=== PATIENT | female | born 1980 | race American Indian/Alaskan Native ===

== ENCOUNTER 2019-09-02 20:15 | Emergency (ER) | payer MEDICAID ==
[2019-09-02] MEDS ORDERED: ATROVENT IH ONE (20:34)
[2019-09-02] MEDS ORDERED: PROVENTIL IH ONE (20:34)
--- NOTE | 2019-09-02 20:34 | Event Note ---
ED Screening Note ED Screening Note: presents SOB/wheezing a couple days hx of asthma uses albuterol inhaler subjective fever cough PMHx DM no allergies to meds PSHx hysterectomy This initial assessment/diagnostic orders/clinical plan/treatment(s) is/are subject to change based on patients health status, clinical progression and re-assessment by fellow clinical providers in the ED. Further treatment and workup at subsequent clinical providers discretion. Patient/guardian urged not to elope from the ED as their condition may be serious if not clinically assessed and managed. Initial orders include: CXR, neb tx
--- NOTE | 2019-09-02 20:56 | Emergency Department Report ---
ED Shortness of Breath HPI - General Chief Complaint: Dyspnea/Respdistress Stated Complaint: SOB/BODY PAIN Time Seen by Provider: 09/02/19 20:32 Source: patient Mode of arrival: Ambulatory Limitations: No Limitations - History of Present Illness Initial Comments: Patient is a 38-year-old female with a history of asthma that presents emergency room with complaints of wheezing, cough, shortness of breath. He states her symptoms started 2 days ago. Patient also complaining of body aches. Patient denies fever. She states she recently moved to [place] and ran out of her asthma medications. Patient states she only takes albuterol. Patient states h er symptoms are better with rest and worse with exertion. Patient denies chest pain. Patient denies nausea vomiting. Patient denies abdominal pain. Patient denies syncope. Patient denies dizziness. MD Complaint: shortness of breath, cough -: Sudden Severity: moderate Consistency: constant Improves With: rest Worsens With: exertion Known History Of: asthma Context: recent URI, medication noncompliance Associated Symptoms: cough Treatments Prior to Arrival: none - Related Data Home Oxygen Therapy: No Previous Rx's Medication Instructions Recorded Last Taken Type ALBUTEROL Inhaler (OR & NICU) 2 puff IH Q4HR PRN #1 inhalation 09/02/19 Unknown Rx [ProAir HFA Inhaler] ALBUTEROL NEB's [Proventil 0.083% 2.5 mg IH TID PRN #1 box 09/02/19 Unknown Rx NEBS] Doxycycline Hyclate [Doxycycline 100 mg PO Q12HR 10 Days #20 tab 09/02/19 Unknown Rx Hyclate TAB] methylPREDNISolone [Medrol 4MG 4 mg PO DAILY 6 Days #1 tab.ds.pk 09/02/19 Unknown Rx DOSEPAK (21 tabs)] Allergies Allergy/AdvReac Type Severity Reaction Status Date / Time No Known Allergies Allergy Unverified 09/02/19 20:35 ED Review of Systems ROS: Stated complaint: SOB/BODY PAIN Other details as noted in HPI Constitutional: denies: fever Eyes: denies: eye pain, eye discharge, vision change ENT: denies: ear pain, throat pain Respiratory: cough, shortness of breath. denies: wheezing Cardiovascular: denies: chest pain, palpitations Endocrine: no symptoms reported Gastrointestinal: denies: abdominal pain, nausea, diarrhea Genitourinary: denies: urgency, dysuria, discharge Musculoskeletal: denies: back pain, joint swelling, arthralgia Skin: denies: rash, lesions Neurological: denies: headache, weakness, paresthesias Psychiatric: denies: anxiety, depression Hematological/Lymphatic: denies: easy bleeding, easy bruising ED Past Medical Hx - Past Medical History Previous Medical History?: Yes Hx Diabetes: Yes Hx Asthma: Yes Additional medical history: Pneumonia, Obesity - Surgical History Past Surgical History?: Yes Additional Surgical History: Hysterectomy - Family History Family history: no significant - Social History Smoking Status: Never Smoker Substance Use Type: None - Medications Home Medications: Home Medications Medication Instructions Recorded Confirmed Last Taken Type ALBUTEROL Inhaler (OR & NICU) 2 puff IH Q4HR PRN #1 inhalation 09/02/19 Unknown Rx [ProAir HFA Inhaler] ALBUTEROL NEB's [Proventil 0.083% 2.5 mg IH TID PRN #1 box 09/02/19 Unknown Rx NEBS] Doxycycline Hyclate [Doxycycline 100 mg PO Q12HR 10 Days #20 tab 09/02/19 Unknown Rx Hyclate TAB] methylPREDNISolone [Medrol 4MG 4 mg PO DAILY 6 Days #1 tab.ds.pk 09/02/19 Unknown Rx DOSEPAK (21 tabs)] ED Physical Exam - General Limitations: No Limitations General appearance: alert, in no apparent distress - Head Head exam: Present: atraumatic, normocephalic - Eye Eye exam: Present: normal appearance - ENT ENT exam: Present: mucous membranes moist - Neck Neck exam: Present: normal inspection - Respiratory Respiratory exam: Present: wheezes. Absent: respiratory distress - Cardiovascular Cardiovascular Exam: Present: regular rate, normal rhythm. Absent: systolic murmur, diastolic murmur, rubs, gallop - GI/Abdominal GI/Abdominal exam: Present: soft, normal bowel sounds - Extremities Exam Extremities exam: Present: normal inspection - Back Exam Back exam: Present: normal inspection - Neurological Exam Neurological exam: Present: alert, oriented X3 - Psychiatric Psychiatric exam: Present: normal affect, normal mood - Skin Skin exam: Present: warm, dry, intact, normal color. Absent: rash ED Course Vital Signs 09/02/19 09/02/19 09/02/19 20:22 21:23 23:53 Temperature 99.2 F Pulse Rate 99 H Pulse Rate [ 64 Posterior Bases ] Respiratory 20 Rate Respiratory 18 Rate [Posterior Bases] Blood Pressure 176/97 Blood Pressure 166/88 [Left] O2 Sat by Pulse 94 Oximetry - Reevaluation(s) Reevaluation #1: Patient's lungs improved. Patient's lung sounds are now clear. Patient responded well to treatment. I discussed all results with patient. I discussed plan of care with patient. Patient agrees with plan of care. Patient is stable for discharge. Patient will be discharged home. Patient given discharge instructions. Patient voiced understanding of discharge instructions. 09/02/19 22:54 ED Medical Decision Making - Lab Data Result diagrams: 09/02/19 21:00 09/02/19 21:00 - Radiology Data Radiology results: report reviewed, image reviewed CHEST 2 VIEWS INDICATION / CLINICAL INFORMATION: SOB, wheezing, cough, subjective fever. COMPARISON: None available. FINDINGS: SUPPORT DEVICES: None. HEART / MEDIASTINUM: No significant abnormality. LUNGS / PLEURA: There is mild bronchial wall thickening. Mild subsegmental atelectasis in the right lung base. No focal pulmonary consolidation. No pleural effusion. No pneumothorax. ADDITIONAL FINDINGS: No significant additional findings. IMPRESSION: 1. Mild bronchial wall thickening which may be seen in the setting of reactive airway disease or viral upper respiratory infection. No focal pulmonary consolidation. - Medical Decision Making Patient is a 38-year-old female that presents emergency room with complaints of shortness of breath and wheezing. Patient's findings extensively with asthma and bronchitis. Patient's chest x-ray negative for pneumonia but shows findings consistent with bronchitis. Patient's labs unremarkable except for hyperglyce blayne. Patient's history of diabetes. Patient instructed to continue diabetes medications and follow-up with her primary care as soon as possible for diabetes management.. Patient responded well to treatment. Patient given antibiotics, steroids, inhaler - Differential Diagnosis asthma. Bronchitis. Critical care attestation.: If time is entered above; I have spent that time in minutes in the direct care of this critically ill patient, excluding procedure time. ED Disposition Clinical Impression: SOB (shortness of breath), Cough, Bronchitis Asthma Qualifiers: Asthma severity: unspecified severity Asthma persistence: unspecified Asthma complication type: with acute exacerbation Qualified Code(s): J45.901 - Unspecified asthma with (acute) exacerbation Disposition: - TO HOME OR SELFCARE Is pt being admited?: No Does the pt Need Aspirin: No Condition: Stable Instructions: Asthma (ED), Acute Bronchitis (ED), Reactive Airways Disease (ED) Additional Instructions: Patient to follow-up with primary care in 2-3 days. Patient to follow-up with residential door installer in 2-3 days. Patient to return to ER if condition worsens. Patient to rest. Patient to increase water. Patient to take meds as directed. Patient's take Tylenol or ibuprofen when necessary for pain. Prescriptions: Doxycycline Hyclate [Doxycycline Hyclate TAB] 100 mg PO Q12HR 10 Days #20 tab methylPREDNISolone [Medrol 4MG DOSEPAK (21 tabs)] 4 mg PO DAILY 6 Days #1 tab.ds.pk ALBUTEROL Inhaler (OR & NICU) [ProAir HFA Inhaler] 2 puff IH Q4HR PRN #1 inhalation PRN Reason: Shortness Of Breath ALBUTEROL NEB's [Proventil 0.083% NEBS] 2.5 mg IH TID PRN #1 box PRN Reason: Wheezing Referrals: PRIMARY CARE, [Primary Care Provider] - 2-3 Days SHARRON BUSTAMANTE MD [Staff Physician] - 2-3 Days Time of Disposition: 23:01
[2019-09-02] MEDS ORDERED: SOLU-Medrol IV ONE (21:00)
[2019-09-02 21:15] LABS: Hematocrit 38.3 % (30.3-42.9); Hemoglobin 12.3 gm/dl (10.1-14.3); Mean Corpuscular HGB Conc 32 % (30-34); Mean Corpuscular Volume 80 fl (79-97); Platelet Count 214 K/mm3 (140-440); Red Blood Count 4.81 M/mm3 (3.65-5.03)
[2019-09-02 21:43] LABS: Alanine Aminotransferase 13 units/L (7-56); Albumin 3.6 g/dL (3.9-5); BUN/Creatinine Ratio 10; Blood Urea Nitrogen 7 mg/dL (7-17); Calcium 8.8 mg/dL (8.4-10.2); Hemolysis Index 12
--- NOTE | 2019-09-02 22:10 | XRay Report ---
CHEST 2 VIEWS INDICATION / CLINICAL INFORMATION: SOB, wheezing, cough, subjective fever. COMPARISON: None available. FINDINGS: SUPPORT DEVICES: None. HEART / MEDIASTINUM: No significant abnormality. LUNGS / PLEURA: There is mild bronchial wall thickening. Mild subsegmental atelectasis in the right l veronica base. No focal pulmonary consolidation. No pleural effusion. No pneumothorax. ADDITIONAL FINDINGS: No significant additional findings. IMPRESSION: 1. Mild bronchial wall thickening which may be seen in the setting of reactive airway disease or jossie l upper respiratory infection. No focal pulmonary consolidation. Signer Name: Kelli Poe MD Signed: 09/02/2019 10:06 PM Workstation Name: [id number]
[2019-09-02 23:54] VITALS: BP 166/88
== END 2019-09-02 23:54 | disposition home or self-care (01) ==
LOC: ED 20:15
DX: J45.909 Unspecified asthma, uncomplicated (principal); E11.9 Type 2 diabetes mellitus without complications; Z90.710 Acquired absence of both cervix and uterus; Z79.899 Other long term (current) drug therapy
CPT/HCPCS: 36415; 71046; 80053; 85027; 94640; 96374; 99284; J2930; 94644

== ENCOUNTER 2020-11-25 14:52 | Emergency (ER) | payer SELFPAY ==
--- NOTE | 2020-11-25 16:42 | Event Note ---
ED Screening Note Date of service: 11/25/20 Time: 16:40 ED Screening Note: 40-year-old -[place] female presents to the emergency room for left knee pain status post ground-level fall 1 week ago. Patient is in place an ice and Tylenol. Has not followed up with her primary care provider. This initial assessment/diagnostic orders/clinical plan/treatment(s) is/are subject to change based on patients health status, clinical progression and re- assessment by fellow clinical providers in the ED. Further treatment and workup at subsequent clinical providers discretion. Patient/guardian urged not to elope from the ED as their condition may be serious if not clinically assessed and managed. Initial orders include:
--- NOTE | 2020-11-25 17:33 | XRay Report ---
HISTORY:glf left knee pain COMPARISON: None. TECHNIQUE: AP lateral and obliques views were obtained FINDINGS: Bones: No fracture or dislocation. Joint spaces: Minimum degenerative changes characterized by slight narrowing of medial component femo ral tibial articulation with osteophyte formation Soft tissues: No significant abnormality. Additional findings: None. IMPRESSION: 1. No significant abnormality. Signer Name: Billy Kim MD Signed: 11/25/2020 5:28 PM Workstation Name: [id number]
[2020-11-26] MEDS ORDERED: HYDROcodone/ACETAMINOPHEN 5-325 MG TAB PO STA (00:11)
--- NOTE | 2020-11-26 00:11 | Emergency Department Report ---
ED Lower Extremity HPI - General Chief Complaint: Fall Stated Complaint: LT LEG PAIN Source: patient Mode of arrival: Ambulatory Limitations: No Limitations - History of Present Illness Initial Comments: A 40-year-old morbidly obese -[place] female presents emergency department complaining of left knee pain which has been continued for over the last 1 week. States about 1 week ago she was in [place] celebrating her birthday when she was getting out of a hot slipped and fell striking the medial aspect of her left knee on the ground as it twisted laterally during the fall resulting in a vague pain which is progressively worsening since the onset. She has been utilizing ice and Tylenol but states the pain is continued but not yet followed by primary care provider or orthopedic. Reports no worsening of symptoms no stability no fevers chills or sweats no calf pain swelling MD Complaint: knee injury - Related Data Previous Rx's Medication Instructions Recorded Last Taken Type ALBUTEROL NEB's [Proventil 0.083% 2.5 mg IH TID PRN #1 box 09/02/19 Unknown Rx NEBS] Albuterol Mdi (or & Nicu Only) 2 puff IH Q4HR PRN #1 inhalation 09/02/19 Unknown Rx [ProAir HFA Inhaler] Doxycycline Hyclate [Doxycycline 100 mg PO Q12HR 10 Days #20 tab 09/02/19 Unknown Rx Hyclate TAB] methylPREDNISolone [Medrol 4MG 4 mg PO DAILY 6 Days #1 tab.ds.pk 09/02/19 Unknown Rx DOSEPAK (21 tabs)] Albuterol Sulfate [Proventil Hfa] 2 puff IH Q4HR PRN #1 hfa.aer.ad 11/27/19 Unknown Rx Benzonatate [Tessalon Perles] 100 mg PO Q8HR PRN #20 capsule 11/27/19 Unknown Rx predniSONE [Deltasone] 50 mg PO QDAY #5 tab 11/27/19 Unknown Rx Ketorolac [Toradol] 10 mg PO Q6H PRN #14 tablet 11/26/20 Unknown Rx Allergies Allergy/AdvReac Type Severity Reaction Status Date / Time No Known Allergies Allergy Verified 11/27/19 07:28 ED Review of Systems ROS: Stated complaint: LT LEG PAIN Other details as noted in HPI ED Past Medical Hx - Past Medical History Previous Medical History?: Yes Hx Diabetes: Yes Hx Asthma: Yes Additional medical history: Pneumonia, Obesity - Surgical History Past Surgical History?: Yes Additional Surgical History: Hysterectomy - Social History Smoking Status: Never Smoker Substance Use Type: None - Medications Home Medications: Home Medications Medication Instructions Recorded Confirmed Last Taken Type ALBUTEROL NEB's [Proventil 0.083% 2.5 mg IH TID PRN #1 box 09/02/19 Unknown Rx NEBS] Albuterol Mdi (or & Nicu Only) 2 puff IH Q4HR PRN #1 inhalation 09/02/19 Unknown Rx [ProAir HFA Inhaler] Doxycycline Hyclate [Doxycycline 100 mg PO Q12HR 10 Days #20 tab 09/02/19 Unknown Rx Hyclate TAB] methylPREDNISolone [Medrol 4MG 4 mg PO DAILY 6 Days #1 tab.ds.pk 09/02/19 Unknown Rx DOSEPAK (21 tabs)] Albuterol Sulfate [Proventil Hfa] 2 puff IH Q4HR PRN #1 hfa.aer.ad 11/27/19 Unknown Rx Benzonatate [Tessalon Perles] 100 mg PO Q8HR PRN #20 capsule 11/27/19 Unknown Rx predniSONE [Deltasone] 50 mg PO QDAY #5 tab 11/27/19 Unknown Rx Ketorolac [Toradol] 10 mg PO Q6H PRN #14 tablet 11/26/20 Unknown Rx ED Physical Exam - General Limitations: No Limitations General appearance: alert, in no apparent distress - Head Head exam: Present: atraumatic, normocephalic - Eye Eye exam: Present: normal appearance, PERRL, EOMI Pupils: Present: normal accommodation - ENT ENT exam: Present: normal exam, normal orophraynx, mucous membranes moist - Neck Neck exam: Present: normal inspection - Respiratory Respiratory exam: Present: normal lung sounds bilaterally. Absent: respiratory distress - Cardiovascular Cardiovascular Exam: Present: regular rate, normal rhythm. Absent: systolic murmur, diastolic murmur, rubs, gallop - GI/Abdominal GI/Abdominal exam: Present: soft, normal bowel sounds - Extremities Exam Extremities exam: Present: normal inspection, tenderness, normal capillary refill, joint swelling, other (This note is to the medial aspect of the left knee with palpation pain with varus and Jagdish's test. Pain with also palpation along the medial aspect of the knee minimal swelling is noted gait is noticed no ecchymosis. No crepitus.) - Back Exam Back exam: Present: normal inspection. Absent: CVA tenderness (R), CVA tende rness (L) - Neurological Exam Neurological exam: Present: alert, oriented X3, CN II-XII intact - Psychiatric Psychiatric exam: Present: normal affect, normal mood - Skin Skin exam: Present: warm, dry, intact, normal color. Absent: rash ED Course Vital Signs 11/25/20 11/25/20 16:14 22:07 Temperature 98.2 F Pulse Rate 71 Respiratory 20 Rate Blood Pressure 196/106 Blood Pressure 151/100 [Right] O2 Sat by Pulse 100 Oximetry - Orthopedic Splinting/Casting Injury #1 Side: left Lower Extremity Injury Location: knee Lower Extremity Immobilizer: knee immobilizer Other Orthopedic Equipment: crutches ED Lower Extremity MDM - Radiology Data Radiology results: report reviewed [facility] [address] [place] [address] XRay Report Signed Patient: ROSE SUGGS MR#: [id number] : 1980 Acct:[id number] Age/Sex: 40 / F ADM Date: 11/25/20 Loc: ED Attending Dr: Ordering Physician: SIRENA MORGAN Date of Service: 11/25/20 Procedure(s): XR knee 3V LT Accession Number(s): [id number] cc: SIRENA MORGAN Fluoro Time In Minutes: HISTORY:glf left knee pain COMPARISON: None. TECHNIQUE: AP lateral and obliques views were obtained FINDINGS: Bones: No fracture or dislocation. Joint spaces: Minimum degenerative changes characterized by slight narrowing of medial component femoral tibial articulation with osteophyte formation Soft tissues: No significant abnormality. Additional findings: None. IMPRESSION: 1. No significant abnormality. Signer Name: Billy Kim MD Signed: 11/25/2020 5:28 PM Workstation Name: [id number] Critical care attestation.: If time is entered above; I have spent that time in minutes in the direct care of this critically ill patient, excluding procedure time. ED Disposition Clinical Impression: Knee internal derangement Disposition: - TO HOME OR SELFCARE Is pt being admited?: No Does the pt Need Aspirin: No Condition: Stable Instructions: How to Use a Knee Immobilizer, Meniscus Tear, Acute Knee Pain, Adult, Medial Collateral Knee Ligament Sprain, Phase II Rehab-SportsMed, Medial Collateral Knee Ligament Sprain Prescriptions: Ketorolac [Toradol] 10 mg PO Q6H PRN #14 tablet PRN Reason: Pain Referrals: [facility] [Provider Group] - 3-5 Days PRIMARY CARE, [Primary Care Provider] - 3-5 Days MEDHAT BRIGGS MD [Staff Physician] - 3-5 Days
[2020-11-26 01:25] VITALS: BP 136/92
== END 2020-11-26 01:25 | disposition home or self-care (01) ==
LOC: ED 14:52
DX: M23.92 Unspecified internal derangement of left knee (principal); E11.9 Type 2 diabetes mellitus without complications; J45.909 Unspecified asthma, uncomplicated; E66.9 Obesity, unspecified; Z68.39 Body mass index [BMI] 39.0-39.9, adult; Z90.710 Acquired absence of both cervix and uterus; Z79.899 Other long term (current) drug therapy; W18.30XA Fall on same level, unspecified, initial encounter; Y93.89 Activity, other specified; Y92.89 Other specified places as the place of occurrence of the external cause; Y99.8 Other external cause status